=== PATIENT | male | born 1985 | race Caucasian/White ===

== ENCOUNTER 2022-08-18 14:24 | Emergency (ER) | payer BC ==
[2022-08-18 14:39] VITALS: BP 141/90; PULSE 100
[2022-08-18] MEDS ORDERED: Proparacaine 0.5% Ophth Soln 15 ML Bottle EYEBOTH STA (14:46)
== END 2022-08-18 15:19 | disposition home or self-care (01) ==
LOC: JP.ED 14:24
DX: T15.92XA Foreign body on external eye, part unspecified, left eye, initial encounter (principal); F17.210 Nicotine dependence, cigarettes, uncomplicated; Z88.5 Allergy status to narcotic agent; Z86.16 Personal history of COVID-19
CPT/HCPCS: 99283; A9270